=== PATIENT | female | born 1960 | race Caucasian/White ===

== ENCOUNTER 2019-09-04 09:42 | Observation (INO) | payer BC ==
[~2019-09-04] VITALS: Ht 152.4 cm; Wt 83.0 kg
--- OUTSIDE RECORDS SUMMARY | 2019-09-04 09:46 | XMS REPORT | Summary of Care ---
Author Author OLGA Mckeon, NORBERT[place]weepsMap[place] Organization Unknown Address Unknown Phone Unavailable Care Team Providers [facility] Associate Name Role Phone BOUCHRA LEON M.D. Unavailable Unavailable ISAURA ESPINOZA D.O. Unavailable Unavailable ISAURA FLANAGAN Unavailable Unavailable Unavailable Unavailable Functional Status Name Dates Details Functional status health issues are not documented Status: Name Dates Details Cognitive status health issues are not documented Status: Problems Name Dates Details Screening for breast cancer (V76.10, Z12.31) Status: Active Hyperlipemia (272.4, E78.5) Status: Active Elevated liver enzymes (790.5, R74.8) Status: Active Left flank pain (789.09, R10.9) Status: Active LLQ abdominal pain (789.04, R10.32) Status: Active Hematuria (599.70, R31.9) Status: Active Urinary tract infection (599.0, N39.0) Status: Active Left nephrolithiasis (592.0, N20.0) Status: Active Acute otitis media, left (382.9, H66.92) Status: Active Financial difficulties (V60.2, Z59.8) Status: Active Medical non-compliance (V15.81, Z91.19) Status: Active Nonalcoholic fatty liver disease (571.8, K76.0) Status: Active 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 MDD:60 Quantity: 60 BOUCHRA LEON M.D. * Start : 06-Mar-2018 Active Lisinopril 10 MG Oral Tablet TAKE ONE (1) TABLET(S) BY MOUTH ONCE A DAY ,NEEDS 6 MONTH CHECK-UP. * Quantity: 90 Refills: 0 BOUCHRA LEON M.D. * Start : 03-Apr-2018 Active DULoxetine HCl - 60 MG Oral Capsule Delayed Release Particles TAKE ONE (1) CAPSULE(S) BY MOUTH ONCE A DAY. * Quantity: 30 Refills: 0 OLGA D.O.ISAURA * Start : 10-Dec-2018 Active Atorvastatin Calcium 40 MG Oral Tablet TAKE ONE (1) TABLET(S) BY MOUTH AT BEDTIME. * Quantity: 30 Refills: 2 BOUCHRA LEON M.D. * Start : 09-Mar-2017 Active BD Pen Needle Belen U/F 32G X 4 MM use to inject insulin 4xs daily * Quantity: 200 Refills: 2 BOUCHRA LEON M.D. * Start : 22-Mar-2017 Active NovoLOG FlexPen 100 UNIT/ML Subcutaneous Solution Pen-injector inject 12 U SC qAC CF 1:50>150 mg/dL before meal times MDD:50 U * Quantity: 1 Refills: 2 BOUCHRA LEON M.D. * Start : 23-Nov-2017 Active 5 x 3 ML Pen Toujeo SoloStar 300 UNIT/ML Subcutaneous Solution Pen-injector inject 40 U SC daily MDD:50 U * Quantity: 2 Refills: 2 BOUCHRA LEON M.D. * Start : 27-Nov-2017 Active 3 x 1.5 ML Pen Accu-Chek Guide w/Device Kit CHECK BLOOD SUGAR 2 TIMES DAILY * Quantity: 1 Refills: 0 BOUCHRA LEON M.D. * Start : 24-Apr-2018 Active Accu-Chek FastClix Lancets Check BG 2x a day * Quantity: 2 Refills: 2 BOUCHRA LEON M.D. * Start : 24-Apr-2018 Active 102 Unit Box Accu-Chek Guide In Vitro Strip use to check BG 2xs daily * Quantity: 2 Refills: 2 CAROLYN M.D., BOUCHRA * Start : 24-Apr-2018 Active 100 Strip Box Allergies and Adverse Reactions Name Dates Details Iodine Crystals (Allergy) Status: Active Phenergan TABS (Allergy) Status: Active Past Medical History Name Dates Details History of diabetes mellitus (V12.29, Z86.39) Status: Resolved Procedures Procedure Dates Details History of Cholecystectomy Completed History of Foot surgery Completed History of Cataract surgery Completed History of Tonsillectomy Completed History of Hysterectomy Completed Immunization Name Dates Details Immunizations not documented Family History Name Dates Details Family history of kidney stones (V18.69, Z84.1) Status: Active Name Dates Details Family history of diabetes mellitus (V18.0, Z83.3) Status: Active Name Dates Details Family history of diabetes mellitus (V18.0, Z83.3) Status: Active Family history of End stage renal failure on dialysis (585.6, N18.6) Status: Active Family history of spina bifida (V19.5, Z82.79) Status: Active Social History Name Dates Details - Status: Name Dates Details Never smoker Vital Signs Date Test Result Details No Known Vitals to report Results Date Description Value Details Results not documented Plan of Care Name Dates Details Planned Observations Planned Goals not documented Interventions Provided Medication Changes* DULoxetine HCl - 60 MG Oral Capsule Delayed Release Particles - Renew Instructions Name Dates Details Instructions not documented Encounters Appointment; ISAURA ESPINOZA D.O. Encounter Diagnosis: Problem not documented On: 07-Mar-2017 10:00 Appointment; MARLEEN [address]KE [address] Encounter Diagnosis: Problem not documented On: 22-Mar-2017 8:00 Appointment; ISAURA ESPINOZA D.O. Encounter Diagnosis: Problem not documented On: 29-Mar-2017 8:00 Appointment; ZENIA ISBELL P.A. Encounter Diagnosis: Problem not documented On: 28-Jul-2017 9:15 Appointment; BOUCHRA LEON M.D. Encounter Diagnosis: Problem not documented On: 09-Aug-2017 9:00 Appointment; ZENAIDA LEWIS NP Encounter Diagnosis: Problem not documented On: 02-Nov-2017 19:00 Appointment; BOUCHRA LEON M.D. Encounter Diagnosis: Problem not documented On: 23-Nov-2017 10:30 Appointment; MARLEEN LUKE RD Encounter Diagnosis: Problem not documented On: 16-Jan-2018 10:00 Appointment; BOUCHRA LEON M.D. Encounter Diagnosis: Problem not documented On: 21-Feb-2018 16:00 Appointment; ISAURA ESPINOZA D.O. Encounter Diagnosis: Problem not documented On: 18-Jun-2018 13:45 Appointment; BOUCHRA LEON M.D. Encounter Diagnosis: Problem not documented On: 20-Jul-2018 13:00
--- OUTSIDE RECORDS SUMMARY | 2019-09-04 09:46 | XMS REPORT ---
Author Author [facility] Address Unknown Phone Unavailable Care Team Providers Care Data Lead Name Role Phone Unavailable Unavailable Problems This patient has no known problems. Allergies, Adverse Reactions, Alerts This patient has no known allergies or adverse reactions. Medications This patient has no known medications. Results Test Description Test Time Test Comments Text Results Atomic Results Result Comments SCR MAMM BILATERAL JOSE CAD DIGITAL 2019-02-15 14:00:36 - SCR MAMM BILATERAL JOSE CAD DIGITALBILATERAL DIGITAL SCREENING MAMMOGRAM 3D/2D WITH CAD: 02/11/2019CLINICAL: Asymptomatic. Digital breast tomosynthesis was performed in addition to routine CC and MLO views. Current mammographic images were evaluated by either a Exos M-Vu or a [employer] ImageChecker CAD (computer aided detection system). Comparison is made to exam dated 05/13/2017 mammogram - [facility]. The tissue of both breasts is predominantly fatty. There are benign calcifications in both breasts. No suspicious mass, architectural distortion, malignant type calcification, or lymph node abnormality detected. Breast architecture is stable compared to prior exams.IMPRESSION: BENIGNThere is no mammographic evidence of malignancy. Resume annual screening mammography in one year. Jillian nguyen/tasha:02/15/2019 14:00:36 Entry: - 02/16/2019 07:05:04Imaging Technologist: Sandra CASTILLO, [facility]-FWletter sent: BIRADS 1-2 Normal Mammogram BI-RADS: 2 Benign
[2019-09-04] MEDS ORDERED: ASPIRIN 81 MG CHEW TAB PO ONE (10:15)
[2019-09-04 10:30] LABS: BASOPHILS % 0.3 % (0.0-1.0); EOSINOPHILS # (AUTO) 0.1 (0.0-0.4); EOSINOPHILS % 1.7 % (0.0-6.0); HEMATOCRIT 38.5 % (34.2-44.1); HEMOGLOBIN 13.2 g/dL (12.0-16.0); LYMPHOCYTES # (AUTO) 2.7 (1.0-3.2); LYMPHOCYTES % 44.7 % (18.0-39.1); MEAN CORPUSCULAR HEMOGLOBIN 29.6 pg (28-32); MEAN CORPUSCULAR HGB CONC 34.3 g/dL (31-35); MEAN CORPUSCULAR VOLUME 86.3 fL (81-99); MONOCYTES # (AUTO) 0.3 (0.2-0.8); MONOCYTES % 5.4 % (4.4-11.3); NEUTROPHILS # (AUTO) 2.8 (2.1-6.9); NEUTROPHILS % 47.7 % (38.7-80.0); PLATELET COUNT 149 x10e3/uL (140-360); RED BLOOD COUNT 4.46 x10e6/uL (3.6-5.1)
[2019-09-04 10:46] LABS: INR 0.85; PARTIAL THROMBOPLASTIN TIME 28.1 seconds (23.8-35.5); PROTHROMBIN TIME 12.1 seconds (11.9-14.5)
[2019-09-04 11:03] LABS: ALANINE AMINOTRANSFERASE 38 IU/L (0-55); ALBUMIN 3.9 g/dL (3.5-5.0); ALBUMIN/GLOBULIN RATIO 1.3 (0.8-2.0); ALKALINE PHOSPHATASE 81 IU/L (40-150); BILIRUBIN,URINE NEGATIVE (NEGATIVE); BLOOD UREA NITROGEN 14 mg/dL (7-26); BUN/CREATININE RATIO 19 (6-25); CALCIUM 9.1 mg/dL (8.4-10.2); CARBON DIOXIDE 22 mmol/L (22-29); CHLORIDE 100 mmol/L (98-107); CLARITY,URINE CLEAR (CLEAR); COLOR,URINE YELLOW (YELLOW); CREATINE KINASE 44 IU/L (29-168); CREATININE, SERUM 0.74 mg/dL (0.57-1.11); EST GLOMERULAR FILTRATION RATE > 60 ML/MIN (60-); GLUCOSE 269 mg/dL (74-118); KETONES,URINE TRACE (NEGATIVE); LEUKOCYTE ESTERASE ,URINE NEGATIVE (NEGATIVE); MAGNESIUM 1.8 MG/DL (1.3-2.1); NITRITE,URINE NEGATIVE (NEGATIVE); PROTEIN,URINE DIPSTICK NEGATIVE (NEGATIVE); SODIUM 133 mmol/L (136-145); URINE UROBILINOGEN 0.2 mg/dL (0.2 - 1)
--- NOTE | 2019-09-04 11:14 | Diagnostic Imaging Report ---
EXAMINATION: CHEST SINGLE (PORTABLE) INDICATION: Chest pain COMPARISON: None FINDINGS: LINES/TUBES:EKG leads overlie the chest. LUNGS:The lungs are well-inflated. No focal consolidation or pulmonary edema. Mild bibasilar subsegmental atelectasis. PLEURA:No pleural effusion or pneumothorax. MEDIASTINUM:The cardiomediastinal silhouette appears normal in size and shape. BONES/SOFT TISSUES:No acute osseous injury. ABDOMEN:No free air under the diaphragm. IMPRESSION: Mild bibasilar subsegmental atelectasis. No focal pneumonia or pulmonary edema. Signed by: Desirae Martinez MD on 09/04/2019 11:10 AM
[2019-09-04 11:15] LABS: BACTERIA,URINE FEW /HPF; EPITHELIAL CELLS,URINE MODERATE /LPF
[2019-09-04] MEDS ORDERED: ONDANSETRON HCL INJ 2MG/ML 2ML 2 MG/ML VIAL IV PRN (11:45)
[2019-09-04] MEDS ORDERED: DEXTROSE 50% SYRINGE 50 ML IV PRN (11:45)
[2019-09-04] MEDS ORDERED: NITROGLYCERIN 0.4 MG SUBL SL PRN (11:45)
[2019-09-04 13:17] VITALS: BP 158/88
[2019-09-04 13:36] VITALS: BP_SYST 148; BP_SYST 158; BP_DIAS 88; BP_DIAS 89
[2019-09-04 14:00] VITALS: BP 148/89
[2019-09-04 14:17] VITALS: BP 148/89
[2019-09-04 14:27] LABS: CREATINE KINASE 37 IU/L (29-168)
[2019-09-04 15:22] VITALS: BP 160/94
[2019-09-04] MEDS: INSULIN LISPRO 100 UNIT/1 ML 3ML VIAL SQ SCH ×2 (16:30→20:28)
[2019-09-04] MEDS ORDERED: METFORMIN HCL500 MG PO (16:51)
[2019-09-04] MEDS ORDERED: LISINOPRIL10 MG PO (16:51)
[2019-09-04] MEDS ORDERED: CYMBALTA30 MG PO (16:51)
--- NOTE | 2019-09-04 19:00 | NUR ---
Walking rounds done. Patient is resting in bed without any complaints. POC discussed. Tele#[id number]. Patient aware she is NPO after midnight. Bed in lowest position, locked and call espinoza within reach.
--- NOTE | 2019-09-04 19:24 | NUR ---
Cardiology Consult Dictation# [id number]
[2019-09-04 20:00] VITALS: BP 159/88
[2019-09-04 20:30] LABS: CREATINE KINASE 37 IU/L (29-168)
[2019-09-04 20:53] LABS: CHOL/HDL RATIO 5.5 (3.0-3.6)
[2019-09-05] VITALS: BP 148/83
--- NOTE | 2019-09-05 03:00 | NUR ---
Patient resting in bed in NAD and no complaints voiced. Call espinoza within reach.
[2019-09-05 04:00] VITALS: BP 153/92
[2019-09-05 05:16] LABS: BASOPHILS % 0.4 % (0.0-1.0); EOSINOPHILS # (AUTO) 0.1 (0.0-0.4); EOSINOPHILS % 2.4 % (0.0-6.0); HEMATOCRIT 40.3 % (34.2-44.1); HEMOGLOBIN 13.3 g/dL (12.0-16.0); LYMPHOCYTES # (AUTO) 2.8 (1.0-3.2); LYMPHOCYTES % 50.8 % (18.0-39.1); MEAN CORPUSCULAR HEMOGLOBIN 28.7 pg (28-32); MONOCYTES # (AUTO) 0.4 (0.2-0.8); MONOCYTES % 7.1 % (4.4-11.3); NEUTROPHILS # (AUTO) 2.2 (2.1-6.9); NEUTROPHILS % 39.1 % (38.7-80.0); PLATELET COUNT 132 x10e3/uL (140-360); RED BLOOD COUNT 4.63 x10e6/uL (3.6-5.1); RED CELL DISTRIBUTION WIDTH 13.2 % (11.7-14.4)
[2019-09-05 05:33] LABS: ALANINE AMINOTRANSFERASE 39 IU/L (0-55); ALBUMIN 3.7 g/dL (3.5-5.0); ALBUMIN/GLOBULIN RATIO 1.2 (0.8-2.0); ALKALINE PHOSPHATASE 76 IU/L (40-150); ANION GAP 14.4 mmol/L (8-16); BLOOD UREA NITROGEN 15 mg/dL (7-26); BUN/CREATININE RATIO 18 (6-25); CALCIUM 9.4 mg/dL (8.4-10.2); CARBON DIOXIDE 24 mmol/L (22-29); CHLORIDE 102 mmol/L (98-107); CHOL/HDL RATIO 5.5 (3.0-3.6); CHOLESTEROL 215 MD/DL (0-199); CREATININE, SERUM 0.83 mg/dL (0.57-1.11); EST GLOMERULAR FILTRATION RATE > 60 ML/MIN (60-); GLUCOSE 316 mg/dL (74-118); HDL CHOLESTEROL 39 MG/DL (40-60); LDL CHOLESTEROL 116 MG/DL (60-130); POTASSIUM 4.4 mmol/L (3.5-5.1); SODIUM 136 mmol/L (136-145); TRIGLYCERIDES 300 MG/DL (0-149)
--- NOTE | 2019-09-05 06:45 | Consultation ---
DATE OF CONSULTATION: 09/04/2019 Cardiology Consultation REQUESTING PHYSICIAN: Evan Harvey MD REASON FOR CONSULTATION: Chest pain. HISTORY OF PRESENT ILLNESS: This is a 59-year-old woman with history of hypertension and diabetes mellitus, who presents with complaints of chest pain and left arm numbness and pain. She reports she woke up this morning around 2:30 and noted left arm tightness. DICTATION ENDS HERE Rocio Jeff MD ABS/MODL /[id number]
[2019-09-05 07:27] VITALS: BP 173/88
[2019-09-05] MEDS: INSULIN LISPRO 100 UNIT/1 ML 3ML VIAL SQ SCH ×2 (07:30→11:30)
[2019-09-05 07:37] LABS: CREATINE KINASE MB 0.8 ng/mL (0-5.0)
[2019-09-05 08:47] VITALS: BP 173/88
[2019-09-05 08:48] VITALS: BP 173/88
[2019-09-05] MEDS ORDERED: ASPIRIN 81 MG ENTERIC COATED PO SCH (09:00)
[2019-09-05] MEDS ORDERED: REGADENOSON 0.4 MG/5 ML SYR IV ONE (10:09)
--- NOTE | 2019-09-05 11:18 | History and Physical ---
REASON FOR ADMISSION: Chest pain, rule out myocardial infarction. HISTORY OF PRESENT ILLNESS: The patient is a 59-year-old lady with history of diabetes, hypertension, who presented with chest pain, was midsternal, potential radiation on the left arm and no more complaints of chest pain. She is admitted for further evaluation and treatment. PAST MEDICAL HISTORY: Significant for diabetes, hypertension. ALLERGIES: IODINE. SOCIAL HISTORY: Lives at home. Nonsmoker, nondrinker. FAMILY HISTORY: Hypertension. PHYSICAL EXAMINATION: VITAL SIGNS: Temperature 97.3, pulse 90, blood pressure 148/83 and saturations 97% on room air. GENERAL: She is in no apparent distress, lying in the bed. NECK: Supple. CARDIOVASCULAR: Regular rate and rhythm. LUNGS: Clear to auscultation bilaterally. ABDOMEN: Good bowel sounds. Soft, nontender. EXTREMITIES: No clubbing or cyanosis. NEUROLOGIC: Nonfocal. ASSESSMENT AND PLAN: 1. Chest pain. We will rule out for myocardial infarction. We will consult Cardiology. Most likely will need a stress test. 2. Hypertension. We will continue with current care and monitor. 3. Diabetes. Continue with current care and monitoring. Please see hospital chart for full details. MD BONNIE Lam/LISANDRA /[id number]
[2019-09-05 15:29] VITALS: BP 177/93
--- NOTE | 2019-09-05 18:44 | Myoview Stress Test ---
DATE OF STUDY: 09/04/2019 15:46:00 Stress Test - Treadmill ONLY PROCEDURE TITLE: Rest/stress single isotope SPECT imaging with exercise stress and gated SPECT imaging. INDICATION: Chest pain. PROCEDURE IN DETAIL: The patient performed treadmill exercise using a Octavio protocol, exercising for 7 minutes 46 seconds to stage III and completing estimated workload of 10.1 metabolic equivalents (METS). The test was terminated due to target heart rate achieved. The resting heart rate was 99 beats per minute and increased to 144 beats per minute at peak exercise, which was 91% of the maximum predicted heart rate. The resting blood pressure was 143/77 mmHg and increased to 161/92 mmHg, which is a normal response. The resting electrocardiogram demonstrated normal sinus rhythm. There were no ST-segment changes suggestive of myocardial ischemia. Occasional PVCs were noted during recovery. Myocardial perfusion imaging was performed at rest following the injection of 11 mCi of tetrofosmin. At peak exercise, the patient was injected with 32.9 mCi of tetrofosmin and exercise was continued for 50 seconds. FINDINGS: The overall quality of study is fair. Left ventricular cavity is noted to be normal size on the rest and stress studies. SPECT images demonstrate homogeneous tracer distribution throughout the myocardium. Gated SPECT imaging reveals normal myocardial thickening and wall motion. Left ventricular systolic function was calculated to be greater than 70%. IMPRESSION: Myocardial perfusion imaging is normal. Overall left ventricular systolic function was normal without regional wall motion abnormalities. Rocio eJff MD ABS/MODL /[id number]
[2019-09-05] MEDS ORDERED: LISINOPRIL 10 MG TAB PO SCH (21:00)
[2019-09-05] MEDS ORDERED: DULOXETINE HCL 30 MG DELAYED RELEASE PO SCH (21:00)
--- NOTE | 2019-09-06 02:11 | Progress Note ---
DATE: 09/05/2019 Cardiology Progress Note SUBJECTIVE: The patient denies chest pain or shortness of breath. She reports feeling better with resolution of her left arm numbness. She was seen for a stress test today. OBJECTIVE: VITAL SIGNS: Temperature 98.6 degrees, pulse 85, respiratory rate 20, blood pressure 133/88, oxygen saturation 95% on room air. GENERAL: Awake, alert, in no acute distress. LUNGS: Clear to auscultation bilaterally. No wheezes or crackles. CARDIOVASCULAR: Normal rate and regular rhythm. No murmur. Normal S1 and S2. ABDOMEN: Soft and nontender. EXTREMITIES: No edema. CARDIAC MEDICATIONS: Aspirin 81 mg p.o. daily, lisinopril 10 mg p.o. daily. LABORATORY DATA: WBC 5.49, hemoglobin 13.3, hematocrit 40.3, and platelets 132. Sodium 136, potassium 4.4, chloride 102, CO2 of 24, BUN 15, and creatinine 0.83. TELEMETRY: Sinus tachycardia, triglycerides 300. Cholesterol 215, LDL 116, and HDL 39. IMPRESSION: 1. Chest pain. 2. Syncope. 3. Hypertension. 4. Diabetes mellitus. RECOMMENDATIONS: The patient ruled out for myocardial infarction with serial cardiac biomarkers. Nuclear stress test was without evidence of ischemia. However, she was noted to have occasional PVCs during recovery. Recommend increasing lisinopril to b.i.d. given her poor control of blood pressure, initiation of Vascepa as an outpatient given her elevated triglyceride. In addition, given her reported history of syncope, we would recommend outpatient carotid Doppler as well as telemetry monitoring for further evaluation. No further cardiac evaluation is indicated during this admission. Please have the patient follow up with us in the office in two weeks. Thank you for this consult. We will continue to follow. Rocio Jeff MD ABS/MODL /[id number]
--- NOTE | 2019-09-06 02:26 | Consultation ---
DATE OF CONSULTATION: 09/05/2019 Cardiology Consultation REQUESTING PHYSICIAN: Evan Harvey MD. REASON FOR CONSULTATION: Chest pain. HISTORY OF PRESENT ILLNESS: This is a 59-year-old woman with history of hypertension and diabetes mellitus, who presents with complaints of chest pain and left arm numbness and pain. She reports she woke up this morning around 2:30 and noted left arm tightness with numbness of her 4th and 5th digits. This discomfort radiated to her neck and shoulder. She notes that she sleeps in a recliner at baseline. She reports she later developed chest tightness around 4:30 am, this was 2/10 in severity. There was no shortness of breath, nausea, or diaphoresis. She denies any edema, orthopnea, or PND. Of note, she indicates she reports fainting in the kitchen this past April. She stated she felt lightheaded after using the bathroom and attempted to sit down, but due to her symptoms she attempted to walk to the other side of the house to get her daughter, but she passed out in the bathroom prior to making it there. REVIEW OF SYSTEMS: Negative except as per HPI. PAST MEDICAL HISTORY: 1. Diabetes mellitus. 2. Hypertension. PAST SURGICAL HISTORY: 1. Tonsillectomy. 2. Cholecystectomy. 3. Hysterectomy. 4. Bunion surgery. ALLERGIES: PLEASE SEE EMR. MEDICATIONS: Please see medication list. SOCIAL HISTORY: Denies alcohol, tobacco, or illicit drugs FAMILY HISTORY: Pertinent for mother with congestive heart failure and valvular disease as well as sister with 2 stents. PHYSICAL EXAMINATION: VITAL SIGNS: Temperature 98.3 degrees, pulse 92, respiratory rate 16, blood pressure 158/80, oxygen saturation 97% on room air. GENERAL: Obese woman, no acute distress. Well developed, well nourished. HEENT: Normocephalic, atraumatic. Pupils equal. No scleral icterus. NECK: Supple. No thyromegaly or cervical lymphadenopathy. No carotid bruits. LUNGS: Clear to auscultation bilaterally. No wheezes or crackles. CV: Normal rate. Regular rhythm. No murmur. Normal S1, S2. ABDOMEN: Soft, nontender. EXTREMITIES: No edema. NEUROLOGIC: Nonfocal exam. LABORATORY DATA: Sodium 133, potassium 4, chloride 100, CO2 of 22, BUN 14, and creatinine 0.74. Troponin 0.001. WBC 5.95, hemoglobin 13.2, hematocrit 38.5, platelets 149. IMPRESSION: 1. Chest pain. 2. Syncope. 3. Left arm discomfort and numbness. 4. Diabetes mellitus. 5. Hypertension. RECOMMENDATIONS: Trend cardiac markers to rule out myocardial infarction. Obtain fasting lipid panel. Obtain echocardiogram to evaluate for structural heart disease. Given her risk factors, ischemic evaluation is indicated with nuclear stress test. Monitor the patient on telemetry while admitted. Further recommendations pending test results. Thank you for this consult. We will continue to follow. Rocio Jeff MD ABS/MODL /[id number]
== END 2019-09-05 16:48 | disposition home or self-care (01) ==
LOC: ER 09:42 → ERHOLD 11:44 → IMCU 13:01
PROVIDERS: ADMIT Internal Medicine; ATTEND Internal Medicine
DX: R07.9 Chest pain, unspecified (principal); I10 Essential (primary) hypertension; E11.9 Type 2 diabetes mellitus without complications; R55 Syncope and collapse; R20.0 Anesthesia of skin
CPT/HCPCS: 36415 ×2; 71045; 78452; 80053 ×2; 80061 ×2; 81001; 82550 ×2; 82553 ×2; 82948 ×2; 83735; 83880; 84484 ×2; 85025 ×2; 85610; 85730; 87086; 93005; 93017; 93306; 96372; 99284; A9502; G0378 ×2

== ENCOUNTER 2025-01-20 20:41 | Emergency (ER) | payer MEDICARE ==
[~2025-01-20] VITALS: Ht 152.4 cm; Wt 74.4 kg
[~2025-01-20 20:41] MED LIST: CYMBALTA30 MG PO; LISINOPRIL10 MG PO; METFORMIN HCL500 MG PO
[2025-01-20 21:42] VITALS: PULSE 82; RESP 16; TEMP 98.2
[2025-01-20] MEDS: KETOROLAC TROMETHAMINE 60 MG/2 ML VIAL IM ONE (22:24)
[2025-01-21 00:25] VITALS: O2SAT 100
== END 2025-01-21 00:36 | disposition home or self-care (01) ==
LOC: ER 21:45
DX: M25.561 Pain in right knee (principal); I10 Essential (primary) hypertension; E11.9 Type 2 diabetes mellitus without complications; F32.A Depression, unspecified
CPT/HCPCS: 73562; 93926; 93971; 99283; J1885